=== PATIENT | female | born 1980 | race Caucasian/White ===

== ENCOUNTER → 2017-07-15 | Outpatient (CLI) | payer OTHER ==
[2017-07-15 14:13] LABS: Basophils # (A) 0.1 k/uL (0-0.2); Basophils % (A) 1 %; Eosinophils # (A) 0.2 k/uL (0-0.7); Eosinophils % (A) 3 %; HCT 40.4 % (34.0-46.0); HGB 12.9 gm/dL (11.4-16.0); Lymphocytes # (A) 2.1 k/uL (1.0-4.8); Lymphocytes % (A) 34 %; MCH 27.1 pg (25.0-35.0); MCV 84.8 fL (80.0-100.0); Mean Platelet Volume 6.9; Monocytes # (A) 0.4 k/uL (0-1.0); Monocytes % (A) 7 %; Neutrophils # (A) 3.2 k/uL (1.3-7.7); Neutrophils % (A) 53 %; Platelet Count 288 k/uL (150-450); RBC 4.76 m/uL (3.80-5.40); RDW 13.3 % (11.5-15.5); WBC 6.1 k/uL (3.8-10.6)
== END | disposition home or self-care (01) ==
LOC: LABPAT 13:39
PROVIDERS: ATTEND Obstetrics & Gynecology Obstetrics
DX: Z01.812 Encounter for preprocedural laboratory examination (principal)
CPT/HCPCS: 36415; 85025

== ENCOUNTER 2017-08-03 08:37 | Day surgery (SDC) | payer OTHER ==
[2017-07-24 10:34] VITALS: BMI 36.0
[~2017-08-03 08:37] MED LIST: DEXAMETHASONE SOD PHOSPHATE 10 MG/ML 1 ML VIAL IV ONE; LIDOCAINE 1% 20 ML VIAL (10MG/ML) FOR IV START INTRADERMA PRN; MORPHINE SULFATE 2 MG/ML SYRINGE IV PRN; ONDANSETRON 4 MG/2 ML VIAL IVP ONE; Pre Op ABX Message 1 EACH MISC MISCELLANE ONE; SCOPOLAMINE 1.5MG/72HR PATCH TRANSDERM ONE
[2017-08-03] MEDS: LACTATED RINGERS 1,000 ML IV SCH ×2 (09:57→11:07)
[2017-08-03] MEDS ORDERED: VECURONIUM 10 MG VIAL IV ONE (11:06)
[2017-08-03] MEDS ORDERED: MIDAZOLAM 2 MG/2 ML VIAL ONE (11:06)
[2017-08-03] MEDS ORDERED: fentaNYL (PF) 50 MCG/ML 2 ML AMP ONE (11:06)
[2017-08-03] MEDS ORDERED: SUCCINYLCHOLINE CHLORIDE 100 MG/5 ML SYR IV ONE (11:06)
[2017-08-03] MEDS ORDERED: KETOROLAC 30 MG/ML 1 ML VIAL ONE (11:06)
[2017-08-03] MEDS ORDERED: NEOSTIGMINE 1 MG/ML 10 ML VIAL ONE (11:06)
[2017-08-03] MEDS ORDERED: PROPOFOL 10 MG/ML 20 ML VIAL IV ONE (11:06)
[2017-08-03] MEDS ORDERED: GLYCOPYRROLATE 0.2 MG/ML 2 ML VIAL ONE (11:06)
[2017-08-03] MEDS ORDERED: LIDOCAINE 1% INJ 10MG/ML (20 ML MDV) ONE (11:06)
[2017-08-03] MEDS ORDERED: BUPIVACAINE (PF) 0.25% 30 ML VIAL SQ ONE (11:35)
[2017-08-03] MEDS ORDERED: LACTATED RINGERS 1,000 ML IV ONE (11:37)
--- NOTE | 2017-08-03 11:53 | P.OP ---
Date of Procedure: 08/03/17 Preoperative Diagnosis: Menorrhagia, family status complete Postoperative Diagnosis: Same Procedure(s) Performed: Laparoscopic tubal ligation with Falope-Rings, hysteroscopy, dilation and curettage, endometrial ablation with NovaSure Anesthesia: BERYL Surgeon: Lisa De Leon Estimated Blood Loss (ml): 15 Urine output (ml): 75 Pathology: other (Endometrial curettings) Condition: stable Disposition: PACU Indications for Procedure: Heavy menstrual bleeding, family status complete Operative Findings: Normal uterus tubes and ovaries, proliferative endometrial cavity is noted Description of Procedure: Patient was seen in the preoperative area and informed consent was obtained. Questions were answered and risks were reviewed including but not limited to infection, bleeding, damage to bladder, bowel, ureteric injury. Patient stated understanding and informed consent was obtained. Next Patient was taken operating room where general anesthesia was obtained without difficulty by the anesthesia department. She was then prepped and draped in normal sterile fashion in the dorsal lithotomy position a red rubber catheter was then used to drain the bladder clear yellow urine. A weighted speculum was placed in the posterior vaginal vault and the anterior lip of the cervix is visualized and grasped with a single tooth tenaculum and acorn uterine manipulator was advanced into the cervix as a means to maneuver the uterus throughout the procedure. Next Attention was then turned to patient's abdomen where in the umbilical fold a small skin incision was made through this incision the Veress needle is placed once it was deemed to be in the appropriate position with insufflation of a drop CO2 pressure, CO2 insufflation was allowed to occur. 3 L of gas were used to obtain pneumoperitoneum. At this point a 5 mm trocar and sleeve is placed through this incision and toward the pneumoperitoneum under direct visualization. The trocar was removed and the sheath remaining in place and the above-noted findings were visualized. At this point a second 8 mm port site is placed under direct visualization the right lower quadrant the Falope ring applicator was then placed into the abdomen. The left fallopian tube was visualized grasped with his applicator and the ring was placed according to dynamometer mechanic's instructions this was then repeated on the opposite side. Both tubes appeared occluded at this time. At this time Allis was removed from the patient's abdomen the trochars removed and the incisions were closed with 4-0 Vicryl in a subcuticular fashion. Attention was then turned to the patient's vaginal vault the acorn uterine manipulator was removed without difficulty the cervix was then gently dilated to 18-Frisian and a sharp curettage was performed. At this point the NovaSure device was then set to the patient's uterine measurements total length of 4 width of3.0, power of 66 with a total time of 120 seconds. This was then completed after the cavity assessment had been passed. Afterwards device was removed without difficulty is single tooth tenaculum was removed. Hemostasis was appreciated. All counts were correct 2 patient tolerated procedure well and was taken to the recovery room awake and in stable condition
[2017-08-03 12:01] VITALS: TEMP 99
[2017-08-03 12:02] VITALS: RESP 16
[2017-08-03] MEDS: fentaNYL (PF) 50 MCG/ML 2 ML AMP IVP ONE ×2 (12:10→12:24)
[2017-08-03 13:33] VITALS: BP 112/70; PULSE 64
== END 2017-08-03 13:46 | disposition home or self-care (01) ==
LOC: OR 08:37
PROVIDERS: ATTEND Obstetrics & Gynecology Obstetrics
DX: Z30.2 Encounter for sterilization (principal); N84.0 Polyp of corpus uteri; N72 Inflammatory disease of cervix uteri; E66.9 Obesity, unspecified; Z68.36 Body mass index [BMI] 36.0-36.9, adult; K21.9 Gastro-esophageal reflux disease without esophagitis
CPT/HCPCS: 81025; 88305; 58671; 58563; J2250; J1100; J2710; J2405; J2001; J3010; J1885; J0330; J2704